=== PATIENT | female | born 1980 | race Caucasian/White ===

== ENCOUNTER 2019-07-17 14:58 | Emergency (ER) | payer OTHER ==
[~2019-07-17] VITALS: Ht 170.2 cm; Wt 124.7 kg
[2019-07-17] MEDS ORDERED: LOESTRIN FE 1-1 EACH PO (15:13)
[2019-07-17] MEDS ORDERED: ATABEX DHA 200200 MG PO (15:14)
[2019-07-17 17:00] LABS: URINE BILIRUBIN NEGATIVE (Negative); URINE BLOOD TRACE (Negative); URINE CLARITY CLEAR; URINE COLOR YELLOW; URINE GLUCOSE-RANDOM NEGATIVE (Negative); URINE KETONES TRACE (Negative); URINE LEUKOCYTES-REFLEX TRACE (Negative); URINE NITRITE-REFLEX NEGATIVE (Negative); URINE PROTEIN NEGATIVE (Negative); URINE UROBILINOGEN 0.2 E.U./dl (0.2-1.0)
[2019-07-17 17:06] LABS: BACTERIA-REFLEX >30 Many /HPF (None Seen); CASTS None Seen /LPF (None Seen); CRYSTALS None Seen /LPF (None Seen); MUCUS 0-3 Light strn/LPF (None Seen); SQUAMOUS 0-3 Few /LPF (0-3); URINE RBC 0-2 Rare /HPF (0-2); URINE WBC-REFLEX 6-15 Few /HPF (0-5)
[2019-07-17 17:51] LABS: ABSOLUTE BASOPHILS 0.1 thou/uL (0.0-0.2); ABSOLUTE EOSINOPHILS 0.1 thou/uL (0.0-0.7); ABSOLUTE LYMPHOCYTES 1.9 thou/uL (0.8-5.3); ABSOLUTE MONOCYTES 0.6 thou/uL (0.0-1.2); ABSOLUTE NEUTROPHILS 8.3 thou/uL (1.6-8.1); BASOPHILS 0.7 %; EOSINOPHILS 1.3 %; HEMATOCRIT 39.5 % (37.0-47.0); HEMOGLOBIN 13.7 gm/dL (12.0-15.0); LYMPHOCYTES 17.5 %; MCH 30.1 pg (26.0-34.0); MCHC 34.8 g/dL (28.0-37.0); MCV 86.4 fL (80.0-100.0); MPV 7.2 fl. (7.2-11.1); NUCLEATED RBCS 0 /100WBC; PLATELET COUNT* 434 thou/uL (150-400); POLYS 75.5 %; RBC 4.57 mil/uL (4.20-5.00); RDW-CV 13.2 % (10.5-14.5)
[2019-07-17 18:02] LABS: APTT 26.4 Seconds (25.0-31.3); PROTIME 10.2 Seconds (9.20-11.50)
[2019-07-17] MEDS ORDERED: KEFLEX500 M2 PO (18:22)
[2019-07-17 18:37] VITALS: BP 118/80
== END 2019-07-17 18:39 | disposition home or self-care (01) ==
LOC: M.ERS 14:58
PROVIDERS: Nurse Practitioner Psychiatric/Mental Health
DX: M25.562 Pain in left knee (principal); R82.998 Other abnormal findings in urine

== ENCOUNTER 2019-07-24 20:57 | Emergency (ER) | payer OTHER ==
[~2019-07-24] VITALS: Ht 167.6 cm; Wt 124.7 kg
[~2019-07-24 20:57] MED LIST: ATABEX DHA 200200 MG PO; KEFLEX500 M2 PO; LOESTRIN FE 1-1 EACH PO
[2019-07-24] MEDS ORDERED: BIRTH CONTROL PO (21:12)
[2019-07-24] MEDS ORDERED: ADIPEX-P37.5 M1 PO (21:12)
[2019-07-24 21:34] VITALS: BP 195/114
== END 2019-07-24 21:35 | disposition home or self-care (01) ==
LOC: M.ERS 20:57
DX: R60.0 Localized edema (principal); R20.2 Paresthesia of skin

== ENCOUNTER 2020-06-26 06:36 | Emergency (ER) | payer OTHER ==
[~2020-06-26] VITALS: Ht 167.6 cm; Wt 124.7 kg
[~2020-06-26 06:36] MED LIST changes: +ADIPEX-P37.5 M1 PO; +BIRTH CONTROL PO
[2020-06-26 07:39] LABS: ABSOLUTE BASOPHILS 0.1 thou/uL (0.0-0.2); ABSOLUTE EOSINOPHILS 0.1 thou/uL (0.0-0.7); ABSOLUTE LYMPHOCYTES 1.5 thou/uL (0.8-5.3); ABSOLUTE MONOCYTES 0.7 thou/uL (0.0-1.2); ABSOLUTE NEUTROPHILS 11.4 thou/uL (1.6-8.1); BASOPHILS 0.8 %; EOSINOPHILS 0.8 %; HEMATOCRIT 42.1 % (37.0-47.0); HEMOGLOBIN 13.7 gm/dL (12.0-15.0); LYMPHOCYTES 10.7 %; MCH 28.5 pg (26.0-34.0); MCHC 32.7 g/dL (28.0-37.0); MCV 87.1 fL (80.0-100.0); MONOCYTES 5.1 %; MPV 7.5 fl. (7.2-11.1); NUCLEATED RBCS 0 /100WBC; PLATELET COUNT* 412 thou/uL (150-400); POLYS 82.6 %; RBC 4.83 mil/uL (4.20-5.00); RDW-CV 13.8 % (10.5-14.5); WBC 13.8 thou/uL (4.0-11.0)
[2020-06-26 07:53] LABS: CALCIUM 8.7 mg/dL (8.5-10.1); CREATININE 0.8 mg/dL (0.6-1.3); POTASSIUM 3.8 mmol/L (3.5-5.1)
[2020-06-26 07:58] LABS: ALBUMIN 3.2 g/dL (3.4-5.0); TOTAL BILIRUBIN 0.4 mg/dL (<0.1-1.0); TOTAL PROTEIN 7.9 g/dL (6.4-8.2)
[2020-06-26 08:42] LABS: URINE BILIRUBIN NEGATIVE (Negative); URINE BLOOD TRACE (Negative); URINE CLARITY CLEAR; URINE COLOR YELLOW; URINE GLUCOSE-RANDOM NEGATIVE (Negative); URINE KETONES NEGATIVE (Negative); URINE LEUKOCYTES-REFLEX NEGATIVE (Negative); URINE NITRITE-REFLEX NEGATIVE (Negative); URINE PROTEIN NEGATIVE (Negative); URINE UROBILINOGEN 0.2 E.U./dl (0.2-1.0)
[2020-06-26] MEDS ORDERED: NORCO 5-325 TA1 EAC2 PO (10:25)
[2020-06-26] MEDS ORDERED: ZOFRAN ODT4 MG DISSOLVE (10:25)
[2020-06-26] MEDS ORDERED: AUGMENTIN 875-1 EACH PO (10:25)
[2020-06-26 10:40] VITALS: BP 155/79
== END 2020-06-26 10:41 | disposition home or self-care (01) ==
LOC: M.ERS 06:36
PROVIDERS: Emergency Medicine; Emergency Medicine Emergency Medical Services
DX: K57.32 Diverticulitis of large intestine without perforation or abscess without bleeding (principal)